=== PATIENT | female | born 1960 | race Two or more races ===

== ENCOUNTER 2019-12-16 06:10 | Day surgery (SDC) | payer OTHER ==
[~2019-12-16 06:10] MED LIST: CHILDREN'S ASPI81 MG; LOTREL 5-20 MG1 CAP; SYNTHROID50 MCG
== END 2019-12-16 10:25 | disposition home or self-care (01) ==
LOC: CIR.AMB 06:10
PROVIDERS: ATTEND Orthopaedic Surgery Hand Surgery
DX: G56.01 Carpal tunnel syndrome, right upper limb (principal); Z20.828 Contact with and (suspected) exposure to other viral communicable diseases